=== PATIENT | male | born 1965 | race Two or more races ===

== ENCOUNTER 2019-04-21 14:47 | Outpatient (CLI) | payer BC, SELFPAY ==
[2019-04-26 12:18] LABS: Testosterone Free 42.5 pg/mL (35.0-155.0); Testosterone Total 267 ng/dL (250-1100)
== END 2019-04-21 14:48 | disposition home or self-care (01) ==
PROVIDERS: PCP Internal Medicine; Visit Provider Internal Medicine
DX: R79.89 Other specified abnormal findings of blood chemistry (principal); E03.9 Hypothyroidism, unspecified
CPT/HCPCS: 36415; 84402; 84403

== ENCOUNTER → 2019-04-21 17:23 | Outpatient (CLI) | payer BC, SELFPAY ==
--- NOTE | ~2019-04-21 | XR_ITS ---
XR thoracic spine 3V 04/21/2019 17:39 Indication: Back pain Procedure: 4 views thoracic spine Comparison: No prior studies for comparison. Findings: No fracture or traumatic malalignment. There is mild dextrocurvature of the lower thoracic spine. Pedicles intact. Vertebral body heights are maintained. No paraspinal soft tissue abnormality. Surrounding osseous structures are unremarkable. There are coronary artery stents. There are mild en dplate degenerative changes of the mid and lower thoracic spine. Impression: 1: Mild thoracic spondylosis with dextrocurvature of the lower thoracic spine. Reviewed, dictated and finalized at location A. Impression: 1: Mild thoracic spondylosis with dextrocurvature of the lower thoracic spine.
== END ==
PROVIDERS: PCP Internal Medicine; Visit Provider Internal Medicine
DX: M54.9 Dorsalgia, unspecified (principal); M47.814 Spondylosis without myelopathy or radiculopathy, thoracic region; M43.8X4 Other specified deforming dorsopathies, thoracic region
CPT/HCPCS: 72072

== ENCOUNTER 2019-05-02 12:35 | Outpatient (CLI) | payer BC, SELFPAY ==
[2019-05-04 03:09] LABS: Sex Hormone Binding Globulin 25 nmol/L (10-50)
[2019-05-04 03:58] LABS: FSH 3.1 mIU/mL (1.6-8.0); LH 2.6 mIU/mL (1.5-9.3); Prolactin 9.6 ng/mL (***)
[2019-05-06 06:45] LABS: Testosterone Free 44.9 pg/mL (35.0-155.0); Testosterone Total 279 ng/dL (250-1100)
== END 2019-05-02 12:36 | disposition home or self-care (01) ==
PROVIDERS: Internal Medicine Endocrinology, Diabetes & Metabolism; PCP Internal Medicine; Visit Provider Internal Medicine
DX: R79.89 Other specified abnormal findings of blood chemistry (principal)
CPT/HCPCS: 36415; 83001; 83002; 84146; 84270; 84402; 84403

== ENCOUNTER 2019-08-25 13:54 | Outpatient (CLI) | payer BC, SELFPAY ==
[2019-08-25 15:14] LABS: Hematocrit 47.6 % (42.0-52.0); Hemoglobin 15.4 g/dL (14.0-18.0); Mean Corpuscular HGB Conc 32.4 g/dl (32-36); Mean Corpuscular Hemoglobin 29.6 pg (26-34); Mean Corpuscular Volume 91.4 fl (80-100); Mean Platelet Volume 10.5 fl (7.4-10.4); Platelet Count Result 277 k/mm3 (150-375); Red Blood Count 5.21 M/mm3 (4.6-6.20); White Blood Count 6.5 K/mm3 (4.5-10.0)
[2019-08-25 16:26] LABS: Alanine Aminotransferase 23 U/L (4-50); Albumin Level 4.9 g/dL (3.5-5.1); Alkaline Phosphatase 108 U/L (38-126); Aspartate Amino Transferase 25 U/L (17-59); Bilirubin,Total 0.4 mg/dL (0.2-1.3); Blood Urea Nitrogen 15 mg/dL (9-20); Calcium 9.2 mg/dL (8.4-10.2); Carbon Dioxide 24 mmol/L (22-30); Chloride 102 mmol/L (98-107); Estimated Glomerular Filt Rate > 60; Glucose 93 mg/dL (75-110); Potassium 4.7 mmol/L (3.4-5.0); Sodium 137 mmol/L (137-145)
[2019-08-25 16:33] LABS: Hemoglobin A1C 5.6 % (<5.7)
[2019-08-25 16:44] LABS: Free T4 Free Thyroxine 1.52 ng/mL (0.78-2.19)
[2019-08-25 16:58] LABS: Thyroid Stimulating Hormone < 0.015 uIU/mL (0.465-4.680)
[2019-08-30 16:07] LABS: Triiodothyronine T3 Free 3.6 pg/mL (2.3-4.2)
[2019-08-31 16:11] LABS: Testosterone Free 97.4 pg/mL (35.0-155.0); Testosterone Total 583 ng/dL (250-1100)
== END 2019-08-25 13:55 | disposition home or self-care (01) ==
LOC: ANHLAB 13:57
PROVIDERS: PCP Internal Medicine; Visit Provider Internal Medicine Hematology & Oncology
DX: E03.9 Hypothyroidism, unspecified (principal); E29.1 Testicular hypofunction
CPT/HCPCS: 36415; 80053; 83036; 84402; 84403; 84439; 84443; 84481; 85027

== ENCOUNTER 2020-04-26 09:37 | Outpatient (CLI) | payer BC, SELFPAY ==
[2020-04-26 10:30] LABS: Basophils Absolute Auto 0.1 K/mm3 (0.0-0.1); Eosinophils Absolute Auto 0.3 K/mm3 (0-0.3); Eosinophils Percent Auto 3.4 % (0-4.4); Hematocrit 47.1 % (42.0-52.0); Hemoglobin 15.6 g/dL (14.0-18.0); Immature Granulocyte Absolute 0.03 K/mm3 (0.00-0.031); Immature Granulocyte Percent A 0.4 % (0-0.5); Lymphocytes Absolute Auto 2.09 K/mm3 (0.9-3.2); Mean Corpuscular HGB Conc 33.1 g/dl (32-36); Mean Corpuscular Hemoglobin 30.2 pg (26-34); Mean Corpuscular Volume 91.3 fl (80-100); Mean Platelet Volume 9.9 fl (7.4-10.4); Monocytes Absolute Auto 0.7 K/mm3 (0.1-0.6); Monocytes Percent Auto 9.4 % (2.6-8.5); Neutrophils Absolute Auto 4.6 K/mm3 (1.3-6.7); Neutrophils Percent Auto 58.8 % (45.5-73.1); Platelet Count Result 251 k/mm3 (150-375); Red Blood Count 5.16 M/mm3 (4.6-6.20); Red Cell Distribution Width 13.2 % (11.5-14.5); White Blood Count 7.7 K/mm3 (4.5-10.0)
[2020-04-26 13:56] LABS: Alanine Aminotransferase 23 U/L (4-50); Albumin Level 4.2 g/dL (3.5-5.1); Alkaline Phosphatase 74 U/L (38-126); Anion Gap 9 mmol/L (8-16); Aspartate Amino Transferase 26 U/L (17-59); Bilirubin,Total 0.5 mg/dL (0.2-1.3); Blood Urea Nitrogen 17 mg/dL (9-20); Carbon Dioxide 26 mmol/L (22-30); Chloride 103 mmol/L (98-107); Cholesterol 98 mg/dL (0-200); Estimated Glomerular Filt Rate > 60; Glucose 90 mg/dL (75-110); HDL Direct 34 mg/dL; Potassium 4.5 mmol/L (3.4-5.0); Sodium 138 mmol/L (137-145); Triglycerides 72 mg/dL (<150)
[2020-04-26 13:59] LABS: Hemoglobin A1C 5.2 % (<5.7)
[2020-04-26 14:08] LABS: LDL Cholesterol Direct 51 mg/dL
[2020-04-26 14:12] LABS: Free T4 Free Thyroxine 1.71 ng/mL (0.78-2.19)
[2020-04-26 14:26] LABS: Thyroid Stimulating Hormone < 0.015 uIU/mL (0.465-4.680)
[2020-05-01 13:11] LABS: Testosterone Free 222.3 pg/mL (35.0-155.0); Testosterone Total 1015 ng/dL (250-1100)
== END 2020-04-26 09:38 | disposition home or self-care (01) ==
LOC: ANHLAB 09:39
PROVIDERS: PCP Internal Medicine; Visit Provider Internal Medicine Endocrinology, Diabetes & Metabolism
DX: E03.9 Hypothyroidism, unspecified (principal); R73.01 Impaired fasting glucose; E29.1 Testicular hypofunction
CPT/HCPCS: 36415; 80053; 80061; 83036; 84402; 84403; 84439; 84443; 85025

== ENCOUNTER 2020-11-27 11:25 | Outpatient (CLI) | payer BC, SELFPAY ==
[2020-11-27 12:38] LABS: Alanine Aminotransferase 34 U/L (4-50); Albumin Level 4.8 g/dL (3.5-5.1); Alkaline Phosphatase 90 U/L (38-126); Anion Gap 7 mmol/L (8-16); Aspartate Amino Transferase 31 U/L (17-59); Bilirubin,Total 0.5 mg/dL (0.2-1.3); Blood Urea Nitrogen 13 mg/dL (9-20); Calcium 9.2 mg/dL (8.4-10.2); Carbon Dioxide 29 mmol/L (22-30); Chloride 103 mmol/L (98-107); Cholesterol 117 mg/dL (0-200); Estimated Glomerular Filt Rate > 60; Glucose 102 mg/dL (65-110); HDL Direct 37 mg/dL; Potassium 4.3 mmol/L (3.4-5.0); Sodium 139 mmol/L (137-145); Triglycerides 96 mg/dL (<150)
[2020-11-27 12:48] LABS: LDL Cholesterol Direct 63 mg/dL
[2020-11-27 13:07] LABS: Thyroid Stimulating Hormone 0.088 uIU/mL (0.465-4.680)
[2020-11-27 13:13] LABS: Prostate Specific Antigen 0.5 ng/mL (< OR = 4.0)
[2020-11-27 15:36] LABS: Basophils Absolute Auto 0.1 K/mm3 (0.0-0.1); Eosinophils Absolute Auto 0.2 K/mm3 (0-0.3); Eosinophils Percent Auto 2.8 % (0-4.4); Hematocrit 49.8 % (42.0-52.0); Hemoglobin 16.1 g/dL (14.0-18.0); Immature Granulocyte Absolute 0.04 K/mm3 (0.00-0.031); Immature Granulocyte Percent A 0.7 % (0-0.5); Lymphocytes Absolute Auto 1.69 K/mm3 (0.9-3.2); Lymphocytes Percent Auto 27.9 % (18.3-44.2); Mean Corpuscular HGB Conc 32.3 g/dl (32-36); Mean Corpuscular Hemoglobin 30.1 pg (26-34); Mean Corpuscular Volume 93.3 fl (80-100); Mean Platelet Volume 10.4 fl (7.4-10.4); Monocytes Absolute Auto 0.4 K/mm3 (0.1-0.6); Monocytes Percent Auto 7.3 % (2.6-8.5); Neutrophils Absolute Auto 3.7 K/mm3 (1.3-6.7); Neutrophils Percent Auto 60.3 % (45.5-73.1); Platelet Count Result 287 k/mm3 (150-375); Red Blood Count 5.34 M/mm3 (4.6-6.20); Red Cell Distribution Width 13.2 % (11.5-14.5); White Blood Count 6.1 K/mm3 (4.5-10.0)
[2020-11-30 07:18] LABS: Testosterone Total 1038 ng/dL (250-1100)
== END 2020-11-27 11:26 | disposition home or self-care (01) ==
PROVIDERS: PCP Internal Medicine; Visit Provider Internal Medicine
DX: Z00.00 Encounter for general adult medical examination without abnormal findings (principal); Z12.5 Encounter for screening for malignant neoplasm of prostate; E03.9 Hypothyroidism, unspecified; R79.89 Other specified abnormal findings of blood chemistry
CPT/HCPCS: 36415; 80053; 80061; 84153; 84403; 84443; 85025; G0103

== ENCOUNTER 2022-07-24 08:47 | Outpatient (CLI) | payer BC, SELFPAY ==
[2022-07-24 09:33] LABS: Basophils Absolute Auto 0.1 K/mm3 (0.0-0.1); Eosinophils Absolute Auto 0.3 K/mm3 (0-0.3); Eosinophils Percent Auto 5.2 % (0-4.4); Hematocrit 45.9 % (42.0-52.0); Hemoglobin 15.2 g/dL (14.0-18.0); Immature Granulocyte Absolute 0.01 K/mm3 (0.00-0.031); Immature Granulocyte Percent A 0.2 % (0-0.5); Lymphocytes Absolute Auto 1.57 K/mm3 (0.9-3.2); Lymphocytes Percent Auto 32.4 % (18.3-44.2); Mean Corpuscular HGB Conc 33.1 g/dl (32-36); Mean Corpuscular Hemoglobin 29.9 pg (26-34); Mean Corpuscular Volume 90.4 fl (80-100); Mean Platelet Volume 10.6 fl (7.4-10.4); Monocytes Absolute Auto 0.4 K/mm3 (0.1-0.6); Monocytes Percent Auto 8.9 % (2.6-8.5); Neutrophils Absolute Auto 2.5 K/mm3 (1.3-6.7); Neutrophils Percent Auto 52.3 % (45.5-73.1); Platelet Count Result 233 k/mm3 (150-375); Red Blood Count 5.08 M/mm3 (4.6-6.20); Red Cell Distribution Width 13.2 % (11.5-14.5); White Blood Count 4.8 K/mm3 (4.5-10.0)
[2022-07-24 10:33] LABS: Alanine Aminotransferase 34 U/L (6-50); Albumin Level 4.5 g/dL (3.5-5.1); Alkaline Phosphatase 87 U/L (38-126); Anion Gap 3 mmol/L (8-16); Aspartate Amino Transferase 56 U/L (17-59); Bilirubin,Total 0.7 mg/dL (0.2-1.3); Blood Urea Nitrogen 14 mg/dL (9-20); Calcium 8.7 mg/dL (8.4-10.2); Carbon Dioxide 29 mmol/L (22-30); Chloride 103 mmol/L (98-107); Cholesterol 114 mg/dL (0-200); Estimated Glomerular Filt Rate > 60; Glucose 97 mg/dL (65-110); HDL Direct 41 mg/dL; Potassium 4.3 mmol/L (3.4-5.0); Sodium 135 mmol/L (137-145); Triglycerides 85 mg/dL (<150)
[2022-07-24 10:43] LABS: LDL Cholesterol Direct 51 mg/dL
[2022-07-24 10:48] LABS: Free T4 Free Thyroxine 1.63 ng/mL (0.78-2.19); Vitamin D 25 Hydroxy 40.5 ng/mL
[2022-07-24 11:01] LABS: Prostate Specific Antigen 0.4 ng/mL (< OR = 4.0); Thyroid Stimulating Hormone 0.638 uIU/mL (0.465-4.680)
[2022-07-24 11:24] LABS: Hemoglobin A1C 5.8 % (<5.7)
[2022-07-24 12:57] LABS: Folic Acid > 20.0 ng/mL (2.76->20)
[2022-07-24 13:25] LABS: Creatinine Urine 40.5 mg/dL
[2022-07-24 14:12] LABS: Microalbumin Urine Random < 6.0 mg/L (0-16.7)
[2022-07-24 14:13] LABS: MALB Creatinine Ratio < 14.8 mg/g (0-30)
[2022-07-31 11:58] LABS: Testosterone Free 35.5 pg/mL (35.0-155.0); Testosterone Total 219 ng/dL (250-1100)
== END 2022-07-24 08:48 | disposition home or self-care (01) ==
PROVIDERS: PCP Internal Medicine; Visit Provider Internal Medicine Hematology & Oncology
DX: E78.5 Hyperlipidemia, unspecified (principal); Z12.5 Encounter for screening for malignant neoplasm of prostate; E55.9 Vitamin D deficiency, unspecified; R79.89 Other specified abnormal findings of blood chemistry; E11.9 Type 2 diabetes mellitus without complications
CPT/HCPCS: 36415; 80053; 80061; 82043; 82306; 82607; 82746; 83036; 84153; 84402; 84403; 84439; 84443; 85025; G0103